=== PATIENT | female | born 1975 | race Caucasian/White ===

== ENCOUNTER 2019-08-22 19:00 | Emergency (ER) | payer OTHER ==
[~2019-08-22] VITALS: Ht 165.1 cm; Wt 81.6 kg
--- NOTE | 2019-08-22 19:26 | NUR ---
PATIENT WAS MSE BY DR GORDON IN ROOM 04B. PATIENT A & O X3.
[2019-08-22 19:45] VITALS: BP 133/88
--- NOTE | 2019-08-22 19:46 | NUR ---
Patient discharged to home in stable condition. Written and verbal after care instructions given. Patient verbalizes understanding of instructions.
== END 2019-08-22 19:47 | disposition home or self-care (01) ==
LOC: ER 19:07
DX: J20.8 Acute bronchitis due to other specified organisms (principal); B97.89 Other viral agents as the cause of diseases classified elsewhere; R05 Cough
CPT/HCPCS: A4663